=== PATIENT | male | born 1990 | race African-American/Black ===

== ENCOUNTER 2020-03-07 18:26 | Emergency (ER) | payer OTHER ==
[~2020-03-07] VITALS: Ht 185.4 cm; Wt 158.8 kg
[~2020-03-07 18:26] MED LIST: IBUPROFEN 600600 M1 PO; KEFLEX500 MG PO; NORCO 5-325 TA1 EACH PO; PROVENTIL
[2020-03-07] MEDS ORDERED: TRIAMCINOLONE A80 G2 TOP (22:03)
[2020-03-07] MEDS ORDERED: ONDANSETRON HCL4 M2 PO (22:03)
[2020-03-07 22:09] LABS: POTASSIUM 4.4 mmol/L (3.5-5.1)
[2020-03-07 22:30] VITALS: BP 133/89
== END 2020-03-07 22:37 | disposition home or self-care (01) ==
LOC: ER 18:26
PROVIDERS: Physician Assistant
DX: K80.20 Calculus of gallbladder without cholecystitis without obstruction (principal); R05 Cough; R09.81 Nasal congestion; R10.11 Right upper quadrant pain; L30.9 Dermatitis, unspecified; R50.9 Fever, unspecified; J45.909 Unspecified asthma, uncomplicated; Z20.828 Contact with and (suspected) exposure to other viral communicable diseases

== ENCOUNTER 2020-04-25 04:07 | Emergency (ER) | payer OTHER ==
[~2020-04-25] VITALS: Ht 185.4 cm; Wt 148.8 kg
[~2020-04-25 04:07] MED LIST changes: +ONDANSETRON HCL4 M2 PO; +TRIAMCINOLONE A80 G2 TOP
[2020-04-25] MEDS ORDERED: CORTIZONE-10 PL28 GM TOP (05:08)
[2020-04-25] MEDS ORDERED: BACTRIM DS TAB1 EACH PO (05:08)
[2020-04-25 05:22] VITALS: BP 107/43
== END 2020-04-25 05:23 | disposition home or self-care (01) ==
LOC: ER 04:07
DX: L03.012 Cellulitis of left finger (principal); L30.9 Dermatitis, unspecified; F12.90 Cannabis use, unspecified, uncomplicated; J45.909 Unspecified asthma, uncomplicated

== ENCOUNTER 2020-09-29 23:02 | Emergency (ER) | payer OTHER ==
[~2020-09-29] VITALS: Ht 185.4 cm; Wt 115.7 kg
[~2020-09-29 23:02] MED LIST changes: +BACTRIM DS TAB1 EACH PO; +CORTIZONE-10 PL28 GM TOP
[2020-09-29 23:37] LABS: URINE BILIRUBIN NEGATIVE (Negative); URINE BLOOD NEGATIVE (Negative); URINE CLARITY CLEAR; URINE COLOR YELLOW; URINE GLUCOSE-RANDOM* NEGATIVE (Negative); URINE KETONES NEGATIVE (Negative); URINE LEUKOCYTES-REFLEX NEGATIVE (Negative); URINE NITRITE-REFLEX NEGATIVE (Negative); URINE PROTEIN (DIPSTICK) NEGATIVE (Negative); URINE SPECIFIC GRAVITY >= 1.030 (1.005-1.035)
[2020-09-30 00:42] LABS: BASOPHILS 0.9 % (0.0-2.0); EOSINOPHILS 1.3 % (0.0-3.0); HEMATOCRIT 42.3 % (42.0-52.0); HEMOGLOBIN 14.5 gm/dL (14.0-18.0); LYMPHOCYTES 37.3 % (24.0-44.0); MCHC 34.3 g/dL (28.0-37.0); MCV 84.6 fL (80.0-100.0); MONOCYTES 7.4 % (1.0-8.0); PLATELET COUNT 303 thou/uL (150-400); POLYS 53.1 % (36.0-66.0); RDW 13.3 % (10.5-14.5); WBC 7.5 thou/uL (4.0-11.0)
[2020-09-30 00:49] LABS: CALCIUM 8.7 mg/dL (8.5-10.1); POTASSIUM 3.5 mmol/L (3.5-5.1)
[2020-09-30 00:55] LABS: ALBUMIN 3.2 g/dL (3.4-5.0); TOTAL BILIRUBIN 0.4 mg/dL (0.2-1.0)
[2020-09-30] MEDS ORDERED: NAPROSYN500 MG PO (01:42)
[2020-09-30 01:56] VITALS: BP 113/72
== END 2020-09-30 01:56 | disposition home or self-care (01) ==
LOC: ER 23:02
PROVIDERS: Emergency Medicine
DX: R10.9 Unspecified abdominal pain (principal); R11.0 Nausea; R61 Generalized hyperhidrosis; J45.909 Unspecified asthma, uncomplicated; Z87.19 Personal history of other diseases of the digestive system